=== PATIENT | male | born 1960 | race Caucasian/White ===

== ENCOUNTER 2019-06-30 17:22 | Inpatient (IN) | payer OTHER ==
[~2019-06-30] VITALS: Ht 172.7 cm; Wt 69.4 kg
[2019-06-30 17:31] VITALS: BP 147/89
[2019-06-30 18:30] LABS: ABSOLUTE MONOCYTES 0.6 thou/uL (0.0-1.2); ABSOLUTE NEUTROPHILS 7.2 thou/uL (1.6-8.1); BASOPHILS 0.5 %; EOSINOPHILS 0.1 %; HEMATOCRIT 40.3 % (42.0-52.0); LYMPHOCYTES 11.6 %; MCH 35.9 pg (26.0-34.0); MCHC 34.8 g/dL (28.0-37.0); MCV 103.1 fL (80.0-100.0); MONOCYTES 6.7 %; MPV 9.9 fl. (7.2-11.1); NUCLEATED RBCS 0 /100WBC; POLYS 81.1 %; RBC 3.91 mil/uL (4.50-6.00); RDW-CV 14.7 % (10.5-14.5); WBC 8.9 thou/uL (4.0-11.0)
[2019-06-30 18:34] LABS: PLATELET COUNT* 49 thou/uL (150-400)
[2019-06-30 18:41] LABS: ANION GAP 10 mmol/L (7-16); BUN 10 mg/dL (7-18); CALCIUM 8.9 mg/dL (8.5-10.1); CHLORIDE 98 mmol/L (98-107); CO2 28 mmol/L (21-32); CREATININE 0.9 mg/dL (0.6-1.3); GLUCOSE 111 mg/dL (70-99); POTASSIUM 3.6 mmol/L (3.5-5.1); SODIUM 136 mmol/L (136-145)
[2019-06-30 18:46] LABS: ALBUMIN 3.6 g/dL (3.4-5.0); ALKALINE PHOSPHATASE 71 U/L (46-116); SGOT 97 U/L (15-37); SGPT 71 U/L (30-65); TOTAL BILIRUBIN 2.4 mg/dL (<0.1-1.0); TOTAL PROTEIN 7.1 g/dL (6.4-8.2); TROPONIN-I LEVEL <0.06 ng/mL (<0.06)
[2019-06-30 19:14] LABS: URINE SPECIFIC GRAVITY >= 1.030 (1.005-1.030)
[2019-06-30 19:18] LABS: URINE CLARITY HAZY
[2019-06-30 19:19] LABS: URINE COLOR DARK YELLOW
[2019-06-30 19:20] LABS: PLATELET ESTIMATE DECREASED
[2019-06-30 19:21] LABS: AMP/METHAMP Negative (Negative); BARBITURATES Negative (Negative); BENZODIAZEPINES Negative (Negative); COCAINE Negative (Negative); METHADONE Negative (Negative); OPIATES Negative (Negative); PCP Negative (Negative); THC Negative (Negative)
[2019-06-30 19:23] LABS: BACTERIA-REFLEX 1-9 Few /HPF (None Seen); CASTS None Seen /LPF (None Seen); CRYSTALS None Seen /LPF (None Seen); MUCUS >6 Heavy strn/LPF (None Seen); SQUAMOUS >10 Many /LPF (0-3); URINE RBC None Seen /HPF (0-2); URINE WBC-REFLEX 0-5 Rare /HPF (0-5)
[2019-06-30 22:20] VITALS: BP 140/81
[2019-06-30 22:22] VITALS: BP 132/80
[2019-06-30 23:01] VITALS: BP 136/96
[2019-07-01] VITALS (18 sets, daily range): BP systolic 112–147; BP diastolic 68–99
--- NOTE | 2019-07-01 05:43 | NUR ---
BROUGHT PATIENT TO THE UNIT AT 2212. PATIENT ABLE TO [facility]. PATIENT ABLE TO STAND UP AND PIVOT TO SIT ON THE BEDSIDE COMMODE. ALERT AND ORIENTED TIMES FOUR. MINOR COMPLAINTS OF PAIN IN HIS LEFT HIP. APOLOGIZED FOR ACCIDENTLY DISLODGING AN IV. VERY CALM AN COOPERTATIVE THROUGH THE SHIFT. SEE ALCOHOL WITHDRAWAL ASSESSMENTS. RN ASSESSMENTS COMPLETED CHARTED. PATIENT HAS NOT REQUIRED ANY WITHDRAWAL MEDICATION SINCE 2229 LAST EVENING
[2019-07-01 08:03] LABS: HEMATOCRIT 38.3 % (42.0-52.0); HEMOGLOBIN 13.3 gm/dL (14.0-18.0); MCH 35.8 pg (26.0-34.0); MCHC 34.6 g/dL (28.0-37.0); MCV 103.3 fL (80.0-100.0); RBC 3.71 mil/uL (4.50-6.00); RDW-CV 14.2 % (10.5-14.5); WBC 5.2 thou/uL (4.0-11.0)
[2019-07-01 08:13] LABS: CALCIUM 8.4 mg/dL (8.5-10.1); CREATININE 0.8 mg/dL (0.6-1.3); POTASSIUM 3.8 mmol/L (3.5-5.1); TOTAL BILIRUBIN 1.9 mg/dL (<0.1-1.0); TOTAL PROTEIN 6.1 g/dL (6.4-8.2)
--- NOTE | 2019-07-01 11:34 | EKG ---
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[id number] Requested By: Ezekiel Ureña Order Number: [id number] MD: Quincy Babb Measurements Intervals [place] Rate: 81 P: 39 CT: 119 QRS: 43 QRSD: 101 T: 27 QT: 416 QTc: 483 Interpretive Statements Sinus rhythm Possible left atrial enlargement Minimal ST depression, diffuse leads Borderline prolonged QT interval Baseline wander in lead(s) II,III,aVF,V3 No previous ECG available for comparison Electronically Signed On 07-01-2019 11:34:24 CDT by Quincy Babb [email or web address] <ELECTRONICALLY SIGNED> By: Quincy Babb MD, [facility] 07/01/19 1134 1823 1823 Quincy Babb MD, [facility] /EPI
--- NOTE | 2019-07-01 14:33 | NUR ---
ASSUMED PT CARE REPORT RECEIVED FROM NURSE. PT IS AOX3 FORGETFUL WITH MILD ANXIETY AND TREMORS. CIWA 2. PT UP TO BEDSIDE COMMODE , HAD A SMALL BOWEL MOVEMENT. PHYSICAL THERAPY ORDERED AND WORKED WITH PT. PT HAS GOOD APPETITE. COMPLAINS OF PAIN LEVEL 8 IN LEFT HIP. TRAMADOL GIVEN WELL LIDODERM PATCH. PT RATES HIS PAIN LEVEL 6 AFTER TRAMADOL HAS BEEN GIVEN. PT HAS NO OTHER CONCERNS. WILL CONTINUE TO MONITOR
--- NOTE | 2019-07-01 18:20 | NUR ---
pt bladder scanned, shows 460cc of retention. then pt has urinated 300 cc of urine. will continue to scan bladder and monitor for retention every 6 hours.
--- NOTE | 2019-07-01 18:28 | NUR ---
pt ambulates in hallway with a walker. nurse assistance and gait belt.
[2019-07-02] VITALS (71 sets, daily range): BP systolic 109–152; BP diastolic 72–113
--- NOTE | 2019-07-02 00:30 | NUR ---
PT NOTED TO HAVE SLEEP APNEA, SAO2 DECLINING 80'S OFF AND ON WHEN RESTING THEN SAO2 INCREASING BACK UP TO HIGH 90'S, OXYGEN 4L PER NC, NO FURTHER SAO2 <90%, WILL CONTINUE TO MONITOR.
--- NOTE | 2019-07-02 01:25 | NUR ---
PT AGITATED, COMBATIVE, UNABLE TO REDIRECT, VISUAL HALLUCINATIONS, WANTING TO MOVE THE TRUCK AND GO OUTSIDE TO URINATE, SECURITY TO ROOM X2, ATIVAN TOTAL 10MG GIVEN PER ORDER, CIWA 31, CALLED DR ORDRIGUES, UPDATED INCREASED CIWA, CONTINUE AGITATION, ANXIETY, DELUSIONAL, AND CONFUSED. NEW ORDER CONTINUE TO GIVEN ATIVAN NEEDED ORDERED AND HALIDOL 5MG IM X1, WILL FOLLOW ORDERS, CONTINUE TO MONITOR, AND KEEP SAFE.
[2019-07-02 03:44] LABS: HEMATOCRIT 39.4 % (42.0-52.0); HEMOGLOBIN 13.2 gm/dL (14.0-18.0); MCH 35.3 pg (26.0-34.0); MCHC 33.5 g/dL (28.0-37.0); MCV 105.2 fL (80.0-100.0); MPV 10.7 fl. (7.2-11.1); RBC 3.74 mil/uL (4.50-6.00); RDW-CV 14.2 % (10.5-14.5)
[2019-07-02 04:02] LABS: ALKALINE PHOSPHATASE 65 U/L (46-116); ANION GAP 9 mmol/L (7-16); BUN 9 mg/dL (7-18); CALCIUM 8.7 mg/dL (8.5-10.1); CHLORIDE 100 mmol/L (98-107); CHOLESTEROL 154 mg/dL (<200); CO2 28 mmol/L (21-32); CREATININE 0.8 mg/dL (0.6-1.3); GLUCOSE 101 mg/dL (70-99); HDL CHOLESTEROL 77 mg/dL (>40); LDL CHOLESTEROL 67 mg/dL (<100); MAGNESIUM 1.3 mg/dL (1.8-2.4); POTASSIUM 3.9 mmol/L (3.5-5.1); SGOT 53 U/L (15-37); SGPT 46 U/L (30-65); SODIUM 137 mmol/L (136-145); TOTAL BILIRUBIN 1.6 mg/dL (<0.1-1.0); TOTAL PROTEIN 6.2 g/dL (6.4-8.2); TRIGLYCERIDE 54 mg/dL (<150); VLDL 11 mg/dL (<40)
[2019-07-02 04:31] LABS: SERUM ASSESSMENT CLEAR
--- NOTE | 2019-07-02 05:49 | NUR ---
RESTING QUIELTY WITH EYES CLOSED AT PRESENT TIME, AROSABLE TO VERBAL STIMULI, AGITATED, RESTLESS, HALLUCINATIONS, N/V, AND DIFFICULT TO REDIRECT FIRST PART OF NOC, ATIVAN 2MG IVP PRN AND X1 DOSE HALDOL IM HELPFUL FOR REST, RESTING QUIELTY WITH EYES CLOSED, AROUSABLE TO TACTILE STIMULI AT THIS TIME, V/S STABLE, MAGNESIUM 1.3 THIS AM, INTIATED FIRST BAG 2GM MAGNESIUM IV PER ORDERED ELECTROLYTE PROTOCOL. EMESIS X1, HUYNH CATHETER PATENT TO DD, BED ALARM ON FOR SAFETY, EMOTIONAL SUPPORT PROVIDED. EDUCATED USE OF CALL LIGHT FOR NEEDS, WANTS, OOB, OR ANY CHNAGE IN CONDITION, CALL LIGHT REMAINS IN REACH.
--- NOTE | 2019-07-02 16:49 | NUR ---
PT SLEEPING THROUGOUT SHIFT. PT REMAINS SEDATED FROM MEDICATIONS RECEIVED PREVIOUS SHIFTS. PT WILL AWAKEN WHEN TOUCH THEN FALL BACK TO SLEEP. PT NOT EATING D/T ASPIRATION RISK WITH SEDATION PT REPOSITIONED FREQUENTLY. IVF INFUSING. HUYNH CATH DRAINING CLEAR YELLOW URINE.UNABLE TO OBTAIN CIWA SCORES PT IS SLEEPING. FAMILY UPDATED ON PLAN OF CARE. NSR ON MONITOR. VSS
--- NOTE | 2019-07-02 22:00 | NUR ---
PT AWAKE, ALERT, AND CONVERSATIVE, SIGNIFICANT OTHER AT BEDSIDE, CIWA 8, ENCOURAGED PO INTAKE, USING CALL LIGHT FOR NEEDS, BED ALARM ON FOR SAFETY, ULTRAM X1 FOR LEFT HIP PAIN 6/10 EFFECTIVE FOR PAIN MANGEMENT, BED ALARM ON FOR SAFETY.
[2019-07-03] VITALS (29 sets, daily range): BP systolic 106–149; BP diastolic 42–99
[2019-07-03 04:08] LABS: ABSOLUTE EOSINOPHILS 0.1 thou/uL (0.0-0.7); ABSOLUTE MONOCYTES 0.8 thou/uL (0.0-1.2); ABSOLUTE NEUTROPHILS 3.4 thou/uL (1.6-8.1); BASOPHILS 0.7 %; EOSINOPHILS 1.8 %; HEMATOCRIT 40.2 % (42.0-52.0); HEMOGLOBIN 13.5 gm/dL (14.0-18.0); LYMPHOCYTES 19.4 %; MCHC 33.6 g/dL (28.0-37.0); MCV 103.9 fL (80.0-100.0); MONOCYTES 14.1 %; MPV 9.5 fl. (7.2-11.1); NUCLEATED RBCS 0 /100WBC; PLATELET COUNT* 78 thou/uL (150-400); RBC 3.86 mil/uL (4.50-6.00); WBC 5.4 thou/uL (4.0-11.0)
[2019-07-03 04:21] LABS: CREATININE 0.7 mg/dL (0.6-1.3); MAGNESIUM 1.9 mg/dL (1.8-2.4); POTASSIUM 3.7 mmol/L (3.5-5.1)
--- NOTE | 2019-07-03 05:32 | NUR ---
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 NS 100CC/HR INFUSING VIA INFUSION PUMP PER ORDER, HUYNH PATENT TO DD, SIGNIFICANT OTHER HERE AT HS AND UPDATED PLAN OF CARE, BED REMAINS IN LOW AND LOCKED POSITON, BED ALARM FOR SAFETY, CALL LIGHT REMAINS IN REACH.
--- NOTE | 2019-07-03 10:30 | NUR ---
INT ROUNDS: MET WITH PT AND HIS S/O ASMO TO DISCUSS HOME SITUATION/DC PLANNING. 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 HE USES NO EQUIPMENT, HAS NOT SEEN DR IN 15YRS SINCE HIS DIVORCE. PT STATES HE IS DAILY DRINKER BUT WANTS TO STOP 'SO I DON'T LOSE MY GF.' ASMO IN ROOM AND SUPPORTIVE. SHE HAS BEEN SEEKING ETOH REHAB SOURCES FOR PT AND WAS THANKFUL CM ASSISTED AND WAS TELLING PT THE SAME THING, GAVE PT ETOH REHAB RESOURCES AND DISCUSSED. ALSO GAVE UNINSURED PACKET AND SAFETY NET CLINICS. PT STATES FEELING IMPROVED AND HOPES TO GO HOME SOON. WAS RECEPTIVE TO RESOURCES
[2019-07-03 13:05] LABS: PROTIME 10.4 Seconds (9.20-11.50)
--- NOTE | 2019-07-03 18:50 | NUR ---
PATIENT PROGRESSING TOWARDS GOALS. REMAINED AOX4 THIS SHIFT. CIWA 1 FOR NONVISBLE TREMORS. NO ATIVAN GIVEN THIS SHIFT. PATIENT STRENGTH INCREASING. ABLE TO WALK WITH WALKER AROUND 50 FEET, COULD HAVE WALKED MORE DISTANCE, BUT DECIDED TO RETURN TO ROOM. PATIENT STILL SLIGHTLY WOBBLY WITHOUT WALKER. GOOD ORAL INTAKE. BANANA BAG FINISHED THIS SHIFT. PATIENT HOPEFUL FOR DISCHARGE TOMORROW.
[2019-07-04 00:18] VITALS: BP 140/85
[2019-07-04 00:22] VITALS: BP 140/85
[2019-07-04 03:50] LABS: GLYCOHEMOGLOBIN (HGB A1C) 5.1 % (4.8-5.6)
[2019-07-04 04:53] LABS: ABSOLUTE BASOPHILS 0.1 thou/uL (0.0-0.2); ABSOLUTE EOSINOPHILS 0.1 thou/uL (0.0-0.7); ABSOLUTE LYMPHOCYTES 1.3 thou/uL (0.8-5.3); ABSOLUTE MONOCYTES 1.1 thou/uL (0.0-1.2); ABSOLUTE NEUTROPHILS 3.1 thou/uL (1.6-8.1); EOSINOPHILS 2.2 %; HEMOGLOBIN 13.4 gm/dL (14.0-18.0); LYMPHOCYTES 23.2 %; MCH 35.6 pg (26.0-34.0); MCHC 34.3 g/dL (28.0-37.0); MCV 103.7 fL (80.0-100.0); NUCLEATED RBCS 0 /100WBC; PLATELET COUNT* 117 thou/uL (150-400); POLYS 54.6 %; RBC 3.76 mil/uL (4.50-6.00); RDW-CV 14.3 % (10.5-14.5); WBC 5.6 thou/uL (4.0-11.0)
[2019-07-04 05:16] LABS: CALCIUM 8.6 mg/dL (8.5-10.1); CREATININE 0.8 mg/dL (0.6-1.3); MAGNESIUM 1.6 mg/dL (1.8-2.4); POTASSIUM 3.6 mmol/L (3.5-5.1)
--- NOTE | 2019-07-04 06:09 | NUR ---
PROGRESSING TOWARDS GOALS, CIWA 1 FOR UNSEEN TREMORS, AMBULATING HS FROM CHAIR TO BED WITH SLOW STEADY GAIT, DENIES PAIN OR DISCOMFORT, TOLERATING PO INTAKE, DENIES NAUSEA, EDUCATED ETOH CESSATION, PT VERBALIZED UNDERSTANDING, SIGNIFICANT OTHER HERE AT HS, UPDATED ON PLAN OF CARE, DENIES NEEDS, USING URINAL TO VOID YELLOW URINE, SEE COMPUTERIZED I/O DOCUMENTATION FOR FURTHER DETAILS, USING CALL LIGHT APPROPRIATELY, MAGNESIUM 1.6, WILL INITATE ORDERED MAGNESIUM PER ORDERED ELECTROLYTE PROTOCOL. BED REMAINS IN LOW AND LOCKED POSITION, CALL LIGHT REMAINS IN REACH.
[2019-07-04 06:20] VITALS: BP 131/74
[2019-07-04 08:37] VITALS: BP 133/68
[2019-07-04] MEDS ORDERED: PEPCID20 MG PO (10:19)
[2019-07-04] MEDS ORDERED: LIDOCAINE PAIN1 EACH TOP (10:20)
[2019-07-04] MEDS ORDERED: PRENATAL PO (10:22)
[2019-07-04] MEDS ORDERED: VITAMINE B-1100 MG PO (10:22)
[2019-07-04] MEDS ORDERED: MAGOX 400400 MG PO (10:23)
[2019-07-04 10:24] VITALS: BP 133/68
[2019-07-04] MEDS ORDERED: NICOTINE PATCH1 EAC2 TOP (10:43)
--- NOTE | 2019-07-04 11:30 | NUR ---
PATIENT DISCHARGED HOME. GIVEN RESOURCES FOR TREATMENT BY CASE MANAGEMENT. ALL MEDICATIONS GIVEN ARE OTC. PATIENT AWARE. 2X IVS DISCONTINUED. PATIENT TAKEN HOME BY FRIEND. WALKED AMBULATORY TO CAR BY NURSING STA[facility]
== END 2019-07-04 11:30 | disposition home or self-care (01) | DRG 558 ==
LOC: M.ERS 17:22 → M.ICU 20:39 → M.TBA-ER 20:39 → M.ICU 22:28
PROVIDERS: Internal Medicine; Physician Assistant; ADMIT Internal Medicine
DX: M70.62 Trochanteric bursitis, left hip (principal); F10.20 Alcohol dependence, uncomplicated; D69.6 Thrombocytopenia, unspecified; R25.1 Tremor, unspecified; G89.29 Other chronic pain; M54.9 Dorsalgia, unspecified; F17.210 Nicotine dependence, cigarettes, uncomplicated; I70.90 Unspecified atherosclerosis; M54.5 Low back pain; D53.9 Nutritional anemia, unspecified; E88.09 Other disorders of plasma-protein metabolism, not elsewhere classified; E83.42 Hypomagnesemia; E83.51 Hypocalcemia; Z87.81 Personal history of (healed) traumatic fracture; Z79.899 Other long term (current) drug therapy; Y93.89 Activity, other specified